=== PATIENT | female | born 1935 | race Hispanic/Latino ===

== ENCOUNTER 2016-12-08 17:45 | Inpatient (IN) | payer MEDICARE ==
[2016-12-08 19:40] LABS: BASO # 0.1 K/uL (0.0-0.2); BASO % 0.4 % (0.0-2.0); EOS % 0.2 % (0.0-4.0); HEMATOCRIT 43.7 % (34.0-47.0); LYMPH # 1.9 K/uL (1.0-4.3); LYMPH % 13.2 % (20.0-40.0); MEAN CELL VOLUME 89.2 fl (81.0-99.0); MEAN CORPUSCULAR HEMOGLOBIN 29.2 pg (27.0-31.0); MEAN CORPUSCULAR HGB CONC 32.7 g/dL (33.0-37.0); MEAN PLATELET VOLUME 7.7 fl (7.2-11.7); MONO # 1.2 K/uL (0.0-0.8); MONO % 8.6 % (0.0-10.0); NEUT # 11.2 K/uL (1.8-7.0); NEUT % 77.6 % (50.0-75.0); NRBC % 0.2 % (0.0-0.0); RED CELL DISTRIBUTION WIDTH 13.2 % (11.5-14.5); WHITE BLOOD COUNT 14.4 K/uL (4.8-10.8)
[2016-12-08 19:52] LABS: ALB/GLOB RATIO 0.9 (1.0-2.1); ALKALINE PHOSPHATASE 144 U/L (38-126); ALT/SGPT 35 U/L (9-52); AST/SGOT 72 U/L (14-36); BILIRUBIN,TOTAL 0.6 mg/dl (0.2-1.3); BLOOD UREA NITROGEN 27 mg/dl (7-17); CALCIUM 9.9 mg/dL (8.4-10.2); CARBON DIOXIDE 25 mmol/L (22-30); CHLORIDE 98 mmol/L (98-107); GFR AFRICAN-AMERICAN > 60; GLUCOSE,RANDOM 134 mg/dL (65-105); LIPASE 82 U/L (23-300); POTASSIUM 4.3 MMOL/L (3.6-5.0); SODIUM 139 mmol/l (132-148); TOTAL PROTEIN 8.6 G/DL (6.3-8.2)
[2016-12-08 19:54] LABS: PARTIAL THROMBOPLASTIN TIME 30.9 Seconds (25.6-37.1)
[2016-12-08 22:02] LABS: URINE BACTERIA MANY (<OCC); URINE BILIRUBIN NEGATIVE (NEGATIVE); URINE BLOOD SMALL (NEGATIVE); URINE COLOR AMBER (YELLOW); URINE GLUCOSE (UA) NEG (Normal); URINE KETONE TRACE mg/dL (NEGATIVE); URINE LEUKOCYTE ESTERASE LARGE Leu/uL (Negative); URINE PROTEIN 30 mg/dL (NEGATIVE); URINE UROBILINOGEN 0.2-1.0 mg/dL (0.2-1.0); WBC URINE 47 /hpf (0-5)
[2016-12-08 22:06] LABS: RBC URINE 12 /hpf (0-3)
--- NOTE | 2016-12-08 22:33 | CP.PCM.HP ---
History of Present Illness - History of Present Illness History of Present Illness: PCP: Dr Hurd Chief Complaint: Fall with LOC HPI: the hx is obtained from the patient's son and the medical chart. This is an 81 years old female who lives alone brought to the ED after being found on the floor awake but with poor response. She could have been on the floor for over 5 hrs. The patient cannot remember what happened but she was found with urine incontinence, pain to the back of the head and to the posterior of the right knee. She has hx of Dementia and arthritis. PMD: Dementia; Arthritis PSH: No Known surgical Hx as per family SH: No smoking; No illegal drug use; No alcohol; FH: No Known Family Hx Allergies: NKDA Present on Admission - Present on Admission Any Indicators Present on Admission: No History of DVT/PE: No History of Uncontrolled Diabetes: No Urinary Catheter: No Decubitus Ulcer Present: No Review of Systems - Review of Systems Review of Systems: review of systems is limited because of the Dementia and Slow mentation of the patient Past Patient History - Past Medical History & Family History Past Medical History?: No - Past Social History Smoking Status: Never Smoked Alcohol: None Drugs: Denies Home Situation {Lives}: Alone - CARDIAC Hx Cardiac Disorders: No - PULMONARY Hx Respiratory Disorders: No - NEUROLOGICAL Hx Neurological Disorder: Yes Hx Dementia: Yes - HEENT Hx HEENT Problems: No - HEMATOLOGICAL/ONCOLOGICAL Hx Blood Disorders: No - INTEGUMENTARY Hx Dermatological Problems: No - MUSCULOSKELETAL/RHEUMATOLOGICAL Hx Musculoskeletal Disorders: Yes Hx Arthritis: Yes - GASTROINTESTINAL Hx Gastrointestinal Disorders: No - GENITOURINARY/GYNECOLOGICAL Hx Genitourinary Disorders: No - PSYCHIATRIC Hx Substance Use: No Other/Comment: Dementia - SURGICAL HISTORY Hx Surgeries: No - ANESTHESIA Hx Anesthesia: No Meds Allergies/Adverse Reactions: Allergies Allergy/AdvReac Type Severity Reaction Status Date / Time No Known Allergies Allergy Verified 12/08/16 18:00 Physical Exam - Constitutional Appears: No Acute Distress - Head Exam Head Exam: NORMOCEPHALIC Additional comments: Pain to the Occipital on palpation, no erythema nor edema. - Eye Exam Eye Exam: EOMI, Normal appearance Pupil Exam: NORMAL ACCOMODATION, PERRL - ENT Exam ENT Exam: Mucous Membranes Moist, Normal Exam, Normal External Ear Exam, Normal Oropharynx - Neck Exam Neck exam: Positive for: Full Rom, Normal Inspection. Negative for: Lymphadenopathy, Tenderness - Respiratory Exam Respiratory Exam: Clear to Auscultation Bilateral. absent: Rales, Rhonchi, Wheezes - Cardiovascular Exam Cardiovascular Exam: REGULAR RHYTHM, RRR, +S1, +S2 - GI/Abdominal Exam GI & Abdominal Exam: Normal Bowel Sounds, Soft. absent: Organomegaly, Tenderness - Rectal Exam Rectal Exam: Deferred - Extremities Exam Extremities exam: Negative for: calf tenderness, pedal edema - Back Exam Back exam: NORMAL INSPECTION. absent: CVA tenderness (L), CVA tenderness (R) - Neurological Exam Neurological exam: Alert, CN II-XII Intact, Oriented x3, Reflexes Normal - Psychiatric Exam Psychiatric exam: Normal Affect, Normal Mood - Skin Skin Exam: Dry, Intact, Normal Color, Warm Results - Vital Signs Recent Vital Signs: Last Vital Signs Temp 98.6 F 12/08/16 18:01 Pulse 76 12/08/16 18:01 Resp 18 12/08/16 18:01 BP 118/75 12/08/16 18:01 Pulse Ox 96 12/08/16 18:01 - Labs Result Diagrams: 12/08/16 19:37 12/08/16 19:37 - Imaging and Cardiology CT Cervical Spine Status: Image reviewed by me, Report reviewed by me Additional comment: EXAM: CT Cervical Spine Without Intravenous Contrast FINDINGS: Vertebrae: Small focus of dystrophic calcification within the right thyroid lobe. Mild multilevel spondylolisthesis, likely degenerative. Advanced multiple spondylosis without high-grade canal stenosis. No acute fracture. Discs/spinal canal/neural foramina: See above. Soft tissues: Unremarkable. Lung apices: Mild pulmonary tissue edema suspected. Other findings: Advanced arthropathic changes at the frontotemporal joint with pannus formation, bursal calcification, and possible bursitis. IMPRESSION: No acute C-spine traumatic injury. CT scan - head Status: Image reviewed by me Additional comment: CT Head Without Intravenous Contrast FINDINGS: Brain: Diffuse cerebral volume loss and chronic microvascular white matter changes. Ventricles: Unremarkable. Bones/joints: Unremarkable. No acute fracture. Soft tissues: Mild right high parietal extra-axial subcutaneous soft tissue swelling and stranding coming keeping with mild scalp blunt traumatic injury at the vertex.. Sinuses: Unremarkable as visualized. Mastoid air cells: Unremarkable as visualized. IMPRESSION: No acute intracranial pathology or traumatic injury. Assessment & Plan - Assessment and Plan (Free Text) Assessment: #. Syncope and Collapse #. closed head surgery #. UTI/Dehydration #. Leukocytosis Plan: 81 years old female who lives alone brought to the ED after being found on the floor awake but with poor response. She could have been on the floor for over 5 hrs. The patient cannot remember what happened but she was found with urine incontinence, pain to the back of the head and to the posterior of the right knee. She has hx of Dementia and arthritis. #. Syncope and Collapse most likely secondary to Dehydration and hypovolemia, r /o CVA vs Cardiac dysrrhythmia - Observe in Telemetry with cardiac monitoring - Treat dehydration - neuro checks Q4H - repeat CT head without after 8 hrs #. Closed head injury - Pain management #. UTI - Rocephin - follow Urine culture #. Dehydration - IV Fluids - Follow renal labs #. Leukocytosis due to the UTI - follow WBC #. DVT prophylaxis with SCD and Lovenox #. Code Status: Full - Date & Time Date: 12/08/16 Time: 22:33
[2016-12-09] MEDS ORDERED: Sodium Chloride 0.9% 1,000 ML IV SCH (00:15)
[2016-12-09 07:41] LABS: BASO % 0.5 % (0.0-2.0); EOS # 0.2 K/uL (0.0-0.7); EOS % 2.3 % (0.0-4.0); HEMATOCRIT 38.8 % (34.0-47.0); LYMPH # 1.8 K/uL (1.0-4.3); LYMPH % 19.9 % (20.0-40.0); MEAN CELL VOLUME 87.3 fl (81.0-99.0); MEAN CORPUSCULAR HEMOGLOBIN 29.5 pg (27.0-31.0); MEAN CORPUSCULAR HGB CONC 33.8 g/dL (33.0-37.0); MEAN PLATELET VOLUME 7.5 fl (7.2-11.7); MONO # 0.8 K/uL (0.0-0.8); MONO % 8.5 % (0.0-10.0); NEUT # 6.1 K/uL (1.8-7.0); NEUT % 68.8 % (50.0-75.0); NRBC % 0.1 % (0.0-0.0); WHITE BLOOD COUNT 8.9 K/uL (4.8-10.8)
[2016-12-09 08:04] LABS: BLOOD UREA NITROGEN 22 mg/dl (7-17); CALCIUM 9.1 mg/dL (8.4-10.2); CARBON DIOXIDE 25 mmol/L (22-30); CHLORIDE 101 mmol/L (98-107); CHOLESTEROL 156 mg/dL (0-199); GFR AFRICAN-AMERICAN > 60; GLUCOSE,RANDOM 116 mg/dL (65-105); POTASSIUM 3.9 MMOL/L (3.6-5.0); SODIUM 138 mmol/l (132-148)
--- NOTE | 2016-12-09 08:26 | CT ---
PROCEDURE: CT HEAD WITHOUT CONTRAST. HISTORY: trauma COMPARISON: None available. TECHNIQUE: Axial computed tomography images were obtained through the head/brain without intravenous contrast. Radiation dose: Total exam DLP = 736.99 mGy-cm. This CT exam was performed using one or more of the following dose reduction techniques: Automated exposure control, adjustment of the mA and/or kV according to patient size, and/or use of iterative reconstruction technique. FINDINGS: HEMORRHAGE: No intracranial hemorrhage. BRAIN: Diffuse atrophy with prominence of the ventricles and sulci noted. No mass effect or edema. Intracranial atherosclerotic calcifications. Mild scattered white matter hypodensities, which are nonspecific, but often seen with chronic microvascular ischemic disease. Please note that MRI with diffusion imaging is more sensitive in the detection of acute ischemic event. VENTRICLES: No hydrocephalus. CALVARIUM: Unremarkable. PARANASAL SINUSES: Unremarkable as visualized. No significant inflammatory changes. MASTOID AIR CELLS: Unremarkable as visualized. No inflammatory changes. OTHER FINDINGS: Soft tissue swelling, high right parietal scalp. IMPRESSION: Soft tissue swelling, high right parietal scalp. Generalized atrophy. Nonspecific white matter changes. No acute intracranial pathology identified. Preliminary impression was provided by virtual radiologic.
--- NOTE | 2016-12-09 09:00 | CT ---
CT cervical spine without IV contrast Indication: Trauma Comparison: None available. Technique: Axial computed tomography images were obtained of the cervical spine without the use of intravenous contrast. Coronal and sagittal reformatted images were created and reviewed. This CT exam was performed using 1 or more of the falling dose reduction techniques: Automated exposure control, adjustment of the MAA and/or kV according to patient size, and/or use of iterative reconstruction technique. Radiation dose: Total exam DLP = 410.26 mGy-cm. Findings: Osseous demineralization. Multilevel degenerative changes including intervertebral disc space narrowing and osteophyte formation. Multilevel spondylolisthesis, likely degenerative. Mild scoliosis. No acute displaced fracture identified. The prevertebral soft tissues and spinolaminar lines appear intact. The dens tip is intact. There is proper alignment of the lateral masses of C1 with the C2 vertebral body. Included portions of the thyroid gland demonstrates dystrophic calcification within the right thyroid lobe with possible nodule. Included portions of lung apices demonstrates 5 mm nodule in the posterior right upper lobe. Right greater than left carotid artery calcifications. Impression: No evidence of acute fracture or subluxation. Osseous demineralization. Extensive degenerative changes. Dystrophic calcification within the right inferior thyroid lobe with possible nodule. Thyroid ultrasound may be considered for further evaluation if indicated. 5 mm subpleural nodule, posterior right upper lobe. Guidelines by the Fleischner society suggests that in patients with low risk for lung cancer, nodules from 5 mm to 6 mm in diameter should have follow-up in approximately 12 months. In patients with high-risk, such as those were smokers, follow-up is recommended in 6 months. Patients with a known malignancy or risk for metastases should receive 3 month follow-up. Preliminary impression was provided by virtual radiologic.
[2016-12-09] MEDS: Enoxaparin 40 mg Syringe SC SCH (09:13)
--- NOTE | 2016-12-09 10:48 | RAD ---
PROCEDURE: Right Knee Radiographs. HISTORY: Unspecified trauma COMPARISON: None. FINDINGS: BONES: No acute fracture. JOINTS: Degenerative changes medial lateral compartment and to lesser extent patellofemoral joint. Evidence of chondrocalcinosis. JOINT EFFUSION: None. OTHER FINDINGS: None. IMPRESSION: No acute findings related to/accounting for the clinical presentation.
--- NOTE | 2016-12-09 15:16 | CP.PCM.PN ---
Subjective - Date & Time of Evaluation Date of Evaluation: 12/09/16 Time of Evaluation: 11:00 - Subjective Subjective: Patient seen and examined bedside. Complains of pain to right lower extremity with decreased ROM due to pain , stiff Denies any SOB, or palpitations. Unable to give any details related to the events before her son found her on the floor. Appears to have memory problems Objective - Vital Signs/Intake and Output Vital Signs (last 24 hours): Temp Pulse Resp BP Pulse Ox 98.6 F 76 20 110/50 L 98 12/09/16 12:00 12/09/16 12:00 12/09/16 12:00 12/09/16 12:00 12/09/16 12:00 - Medications Medications: Current Medications Acetaminophen (Tylenol 325mg Tab) 650 mg PO Q4 PRN PRN Reason: Other Aspirin (Ecotrin) 81 mg PO DAILY [facility] Last Admin: 12/09/16 09:12 Dose: 81 mg Enoxaparin Sodium (Lovenox) 40 mg SC DAILY CHRISTIE PRN Reason: Protocol Last Admin: 12/09/16 09:13 Dose: 40 mg Ceftriaxone Sodium 1 gm/ (Sodium Chloride) 100 mls @ 100 mls/hr IVPB DAILY CHRISTIE PRN Reason: Protocol - Labs Labs: 12/09/16 07:15 12/09/16 05:30 PT 14.6 Seconds (9.8-13.1) H 12/08/16 19:37 INR 1.3 (0.9-1.2) H 12/08/16 19:37 APTT 30.9 Seconds (25.6-37.1) 12/08/16 19:37 - Constitutional Appears: Non-toxic, No Acute Distress, Other (eledrly, frail , pleasant) - Head Exam Head Exam: ATRAUMATIC, NORMAL INSPECTION, NORMOCEPHALIC Additional comments: right parietal tenderness - Eye Exam Eye Exam: EOMI, Normal appearance, PERRL Pupil Exam: NORMAL ACCOMODATION - ENT Exam ENT Exam: Mucous Membranes Moist, Normal Exam - Neck Exam Neck Exam: Full ROM, Normal Inspection - Respiratory Exam Respiratory Exam: Clear to Ausculation Bilateral, NORMAL BREATHING PATTERN. absent: Rales, Rhonchi, Wheezes - Cardiovascular Exam Cardiovascular Exam: REGULAR RHYTHM, RRR, +S1, +S2. absent: JVD - GI/Abdominal Exam GI & Abdominal Exam: Soft, Normal Bowel Sounds. absent: Distended, Guarding, Tenderness, Rebound - Rectal Exam Rectal Exam: Deferred - Extremities Exam Extremities Exam: Full ROM, Normal Capillary Refill, Normal Inspection. absent : Pedal Edema - Back Exam Back Exam: NORMAL INSPECTION - Neurological Exam Neurological Exam: Alert, Awake, CN II-XII Intact Additional comments: memory problems unable to provide history - Psychiatric Exam Psychiatric exam: Flat Affect - Skin Skin Exam: Dry, Warm Assessment and Plan - Assessment and Plan (Free Text) Assessment: 81 years old female who lives alone brought to the ED after being found on the floor, naked , awake but with poor response. She could have been on the floor for over 5 hrs. The patient cannot remember what happened , unbale to give any details ,but she was found with urine incontinence, pain to the back of the head and to the posterior of the right knee. She has hx of Dementia and arthritis. Patient admitted to telemetry for Syncopy with fall and UTI . 1. Syncope and Collapse of unclear etiology most likely secondary to Dehydration and hypovolemia CT head showed no acute pathology except generalized atrophy patient unable to provide any details or history Continue telemetry monitoring, neurochecks follow up carotid doppler , Echo , MRI head continue IVF PT eval appreciated . patient has unstable gait and will benefit from PT Patient lives by her self and will need home health services. SW eval and referral to [facility] 2. Closed head injury possibly secondary to fall Ct haed showed no acute pathology f/u MRI head Pain management 3. UTI urine is cloudy with bacteria, WBC and LE Continue Rocephin IV follow Urine culture 4. Dehydration on IV Fluids 5. Leukocytosis due to the UTI follow WBC 6. Gait instability PT eval appreciated will benefit from PT 7. DVT prophylaxis SCD and Lovenox
--- NOTE | 2016-12-09 23:11 | CARD ---
APPROVED REPORT EKG Measurement Heart [id number] ID [id number] <Conclusion> Normal sinus rhythm Possible Left atrial enlargement Borderline ECG
[2016-12-10 07:26] LABS: HEMATOCRIT 38.1 % (34.0-47.0); MEAN CORPUSCULAR HEMOGLOBIN 29.6 pg (27.0-31.0); MEAN CORPUSCULAR HGB CONC 33.2 g/dL (33.0-37.0); RED CELL DISTRIBUTION WIDTH 12.6 % (11.5-14.5); WHITE BLOOD COUNT 7.6 K/uL (4.8-10.8)
[2016-12-10 07:41] LABS: BLOOD UREA NITROGEN 15 mg/dl (7-17); CARBON DIOXIDE 28 mmol/L (22-30); CHLORIDE 99 mmol/L (98-107); GFR AFRICAN-AMERICAN > 60; GLUCOSE,RANDOM 101 mg/dL (65-105); POTASSIUM 3.9 MMOL/L (3.6-5.0); SODIUM 139 mmol/l (132-148)
[2016-12-10] MEDS: Enoxaparin 40 mg Syringe SC SCH (08:50)
--- NOTE | 2016-12-10 11:13 | CP.PCM.PN ---
Subjective - Date & Time of Evaluation Date of Evaluation: 12/10/16 Time of Evaluation: 10:30 - Subjective Subjective: Patient seen and examined bedside. Elderly female,lying in bed in NAD.States that does not feel perfect and still has pain to her right leg.Hemodynamically stable, afebrile Undergoing work up for syncopy and IV antibiotics for UTI Urine Cx positive for gram negative pastora Objective - Vital Signs/Intake and Output Vital Signs (last 24 hours): Temp Pulse Resp BP Pulse Ox 97.6 F 78 18 135/70 97 12/10/16 08:00 12/10/16 09:00 12/10/16 08:00 12/10/16 08:00 12/10/16 08:00 - Medications Medications: Current Medications Acetaminophen (Tylenol 325mg Tab) 650 mg PO Q4 PRN PRN Reason: Other Aspirin (Ecotrin) 81 mg PO DAILY [facility] Last Admin: 12/10/16 08:50 Dose: 81 mg Enoxaparin Sodium (Lovenox) 40 mg SC DAILY CHRISTIE PRN Reason: Protocol Last Admin: 12/10/16 08:50 Dose: 40 mg Ceftriaxone Sodium 1 gm/ (Sodium Chloride) 100 mls @ 100 mls/hr IVPB DAILY CHRISTIE PRN Reason: Protocol Last Admin: 12/10/16 00:43 Dose: 100 mls/hr - Labs Labs: 12/10/16 06:00 12/10/16 06:00 PT 14.6 Seconds (9.8-13.1) H 12/08/16 19:37 INR 1.3 (0.9-1.2) H 12/08/16 19:37 APTT 30.9 Seconds (25.6-37.1) 12/08/16 19:37 - Constitutional Appears: Non-toxic, No Acute Distress, Other (elderly ) - Head Exam Head Exam: ATRAUMATIC, NORMOCEPHALIC - Eye Exam Eye Exam: EOMI, Normal appearance, PERRL Pupil Exam: NORMAL ACCOMODATION - ENT Exam ENT Exam: Mucous Membranes Moist, Normal Exam - Neck Exam Neck Exam: Full ROM, Normal Inspection - Respiratory Exam Respiratory Exam: Clear to Ausculation Bilateral, NORMAL BREATHING PATTERN. absent: Rales, Rhonchi, Wheezes - Cardiovascular Exam Cardiovascular Exam: REGULAR RHYTHM, RRR, +S1, +S2. absent: JVD - GI/Abdominal Exam GI & Abdominal Exam: Soft, Normal Bowel Sounds. absent: Guarding, Tenderness, Rebound - Rectal Exam Rectal Exam: Deferred - Extremities Exam Extremities Exam: Normal Capillary Refill. absent: Calf Tenderness, Pedal Edema Additional comments: tenderness to right leg, decreased ROM ( lifting of the bed ) due to pain - Back Exam Back Exam: NORMAL INSPECTION - Neurological Exam Neurological Exam: Alert, Awake, CN II-XII Intact Additional comments: oriented to self, knows son and that she is in hospital - Psychiatric Exam Psychiatric exam: Normal Affect - Skin Skin Exam: Dry, Normal Color, Warm Assessment and Plan - Assessment and Plan (Free Text) Assessment: 81 years old female who lives alone brought to the ED after being found on the floor, naked , awake but with poor response. She could have been on the floor for over 5 hrs. The patient cannot remember what happened , unable to give any details ,but she was found with urine incontinence, pain to the back of the head and to the posterior of the right knee. She has hx of Dementia and arthritis. Patient admitted to telemetry for Syncopy with fall and UTI .Imaging showed no acute fracture. At present still with some pain to right leg and physical therapy recommended PT due to gait imbalance. 1. Syncope and Collapse of unclear etiology most likely secondary to Dehydration and hypovolemia CT head showed no acute pathology except generalized atrophy telemetry monitoring showed no arrythmias so far carotid doppler showed no significant stenosis patient unable to provide any details or history follow up Echo , MRI head continue IVF PT eval appreciated . patient has unstable gait and will benefit from PT Patient lives by her self and will need home health services. SW eval and referral to [facility] 2. Closed head injury possibly secondary to fall Ct head showed no acute pathology f/u MRI head Pain management 3. UTI urine is cloudy with bacteria, WBC and LE and urine culture is positive for gram negative rods Continue Rocephin IV follow up[ identification and sensitivities 4. Dehydration on IV Fluids 5. Leukocytosis due to the UTI trended down fro 14 K -- 7k 6. Gait instability PT eval appreciated will benefit from PT 7. DVT prophylaxis SCD and Lovenox
--- NOTE | 2016-12-10 12:58 | US ---
PROCEDURE: Duplex ultrasound of the carotid and vertebral arteries. HISTORY: syncopy COMPARISON: None available. TECHNIQUE: Grayscale and duplex Doppler evaluation of the cervical carotid and vertebral arteries were performed. The common carotid, carotid bifurcations and cervical ICA and proximal ECA were evaluated. The vertebral arteries were evaluated for gross patency and direction. FINDINGS: RIGHT CAROTID ARTERIES: Common Carotid Artery: Normal. Maximal flow velocity of 84.3 cm/s. Carotid Bifurcation: Partially calcified plaque Internal Carotid Artery:Heterogeneous plaque formation. Maximal flow velocity of 97.3 cm/s. External Carotid Artery (proximal branches): Calcified plaque from the carotid bulb extends into the right ECA. Maximal flow velocity of 96.0 cm/s. ICA/CCA Ratio: 1.2 LEFT CAROTID ARTERIES: Common Carotid Artery: Normal. Maximal flow velocity of 92.2 cm/s. Carotid Bifurcation: Heterogeneous plaque formation. Internal Carotid Artery:Heterogeneous plaque formation. This is particularly evident in the proximal left ICA Maximal flow velocity of 71.2 cm/s. tortuous ICA External Carotid Artery (proximal branches): Heterogeneous plaque formation. Maximal flow velocity of 67.5 cm/s. ICA/CCA Ratio: 0.8 VERTEBRAL ARTERIES: Right Vertebral Artery: Patent. Antegrade flow. Left Vertebral Artery: Patent. Antegrade flow. OTHER FINDINGS: None. IMPRESSION: Right ICA degree of stenosis: Less than 50% Left ICA degree of stenosis: Less than 50% Reference Internal Carotid Artery (ICA) Peak Systolic Velocity (PSV) for above: 1. Less than 50% stenosis less than 125 cm/s peak systolic velocity 2. 50-69% stenosis 125-230cm/s peak systolic velocity 3. Greater than 70% but less than near occlusion greater than 230 cm/s peak systolic velocity
--- NOTE | 2016-12-10 17:05 | CT ---
PROCEDURE: CT HEAD WITHOUT CONTRAST. HISTORY: Syncope COMPARISON: Noncontrast head CT performed 12/08/16 TECHNIQUE: Axial computed tomography images were obtained through the head/brain without intravenous contrast. Radiation dose: Total exam DLP = 820.74 mGy-cm. This CT exam was performed using one or more of the following dose reduction techniques: Automated exposure control, adjustment of the mA and/or kV according to patient size, and/or use of iterative reconstruction technique. FINDINGS: HEMORRHAGE: No intracranial hemorrhage. BRAIN: Diffuse atrophy with prominence of the ventricles and sulci noted. No mass effect or edema. Intracranial atherosclerosis. Scattered white matter hypodensities, which are nonspecific, but often seen with chronic microvascular ischemic disease. Please note that MRI with diffusion imaging is more sensitive in the detection of acute ischemic event. VENTRICLES: No hydrocephalus. CALVARIUM: Unremarkable. PARANASAL SINUSES: Unremarkable as visualized. No significant inflammatory changes. MASTOID AIR CELLS: Unremarkable as visualized. No inflammatory changes. OTHER FINDINGS: None. IMPRESSION: Generalized atrophy. Nonspecific white matter changes.
[2016-12-10 21:44] LABS: THYROID STIMULATING HORMONE 2.99 mIU/ML (0.46-4.68)
[2016-12-11 05:36] LABS: HEMATOCRIT 36.7 % (34.0-47.0); MEAN CELL VOLUME 87.9 fl (81.0-99.0); MEAN CORPUSCULAR HEMOGLOBIN 29.6 pg (27.0-31.0); MEAN CORPUSCULAR HGB CONC 33.7 g/dL (33.0-37.0); RED CELL DISTRIBUTION WIDTH 12.8 % (11.5-14.5)
[2016-12-11 05:38] LABS: BLOOD UREA NITROGEN 9 mg/dl (7-17); CARBON DIOXIDE 28 mmol/L (22-30); CHLORIDE 101 mmol/L (98-107); GFR AFRICAN-AMERICAN > 60; GLUCOSE,RANDOM 122 mg/dL (65-105); SODIUM 139 mmol/l (132-148)
--- NOTE | 2016-12-11 07:36 | CP.PCM.PN ---
Subjective - Date & Time of Evaluation Date of Evaluation: 12/11/16 Time of Evaluation: 11:00 - Subjective Subjective: Patient seen and evaluated bedside.Pleasant, elderly female with memory problems , lying in bed in NAD. Hemodynamically stable, afebrile. No acute issues overnight. Objective - Vital Signs/Intake and Output Vital Signs (last 24 hours): Temp Pulse Resp BP Pulse Ox 97.5 F L 67 20 122/78 98 12/11/16 04:52 12/11/16 04:52 12/11/16 04:52 12/11/16 04:52 12/11/16 04:52 - Medications Medications: Current Medications Acetaminophen (Tylenol 325mg Tab) 650 mg PO Q4 PRN PRN Reason: Other Aspirin (Ecotrin) 81 mg PO DAILY [facility] Last Admin: 12/10/16 08:50 Dose: 81 mg Enoxaparin Sodium (Lovenox) 40 mg SC DAILY [facility] PRN Reason: Protocol Last Admin: 12/10/16 08:50 Dose: 40 mg Ceftriaxone Sodium 1 gm/ (Sodium Chloride) 100 mls @ 100 mls/hr IVPB DAILY [facility]STIE PRN Reason: Protocol Last Admin: 12/10/16 00:43 Dose: 100 mls/hr - Labs Labs: 12/11/16 04:30 12/11/16 04:30 PT 14.6 Seconds (9.8-13.1) H 12/08/16 19:37 INR 1.3 (0.9-1.2) H 12/08/16 19:37 APTT 30.9 Seconds (25.6-37.1) 12/08/16 19:37 - Constitutional Appears: Non-toxic, No Acute Distress, Other (elderly , plesantly demented ) - Head Exam Head Exam: ATRAUMATIC, NORMAL INSPECTION, NORMOCEPHALIC - Eye Exam Eye Exam: EOMI, Normal appearance, PERRL Pupil Exam: NORMAL ACCOMODATION - ENT Exam ENT Exam: Mucous Membranes Moist, Normal Exam - Neck Exam Neck Exam: Full ROM, Normal Inspection - Respiratory Exam Respiratory Exam: Clear to Ausculation Bilateral. absent: Rales, Rhonchi, Wheezes - Cardiovascular Exam Cardiovascular Exam: REGULAR RHYTHM, RRR, +S1, +S2. absent: JVD - GI/Abdominal Exam GI & Abdominal Exam: Soft, Normal Bowel Sounds. absent: Distended, Guarding, Tenderness, Rebound - Rectal Exam Rectal Exam: Deferred - Extremities Exam Extremities Exam: Full ROM, Normal Capillary Refill, Normal Inspection. absent : Calf Tenderness, Pedal Edema - Back Exam Back Exam: NORMAL INSPECTION - Neurological Exam Neurological Exam: Alert, Awake, CN II-XII Intact, Oriented x3 - Psychiatric Exam Psychiatric exam: Normal Affect, Normal Mood - Skin Skin Exam: Dry, Warm Assessment and Plan - Assessment and Plan (Free Text) Assessment: 81 years old female who lives alone brought to the ED after being found on the floor, naked , awake but with poor response. She could have been on the floor for over 5 hrs. The patient cannot remember what happened , unable to give any details ,but she was found with urine incontinence, pain to the back of the head and to the posterior of the right knee. She has hx of Dementia and arthritis. Patient admitted to telemetry for Syncopy with fall and UTI .Imaging showed no acute fracture. At present still with some pain to right leg and physical therapy recommended PT due to gait imbalance. 1. Syncope and Collapse of unclear etiology most likely secondary to Dehydration and hypovolemia CT head showed no acute pathology except generalized atrophy telemetry monitoring showed no arrythmias so far carotid doppler showed no significant stenosis patient unable to provide any details or history follow up Echo MRI head showed no CVA , age related changes PT eval appreciated . Patient has unstable gait and will benefit from PT Patient lives by herself and will need home health services. SW eval and referral to [facility] will d/c to TCU in Am for physical therapy 2. Closed head injury possibly secondary to fall Ct head showed no acute pathology MRI showed no acute pathology Pain management 3. UTI urine is cloudy with bacteria, WBC and LE and urine culture is positive for E. Coli Pansensitive Continue Rocephin IV follow up identification and sensitivities 4. Dehydration IV Fluids 5. Leukocytosis due to the UTI trended down fro 14 K -- 7k 6. Gait instability PT eval appreciated will benefit from PT will d/c to TCU in AM 7. DVT prophylaxis SCD and Lovenox
[2016-12-11] MEDS: Enoxaparin 40 mg Syringe SC SCH (08:53)
--- NOTE | 2016-12-11 13:19 | MRI ---
PROCEDURE: MRI BRAIN WITHOUT CONTRAST HISTORY: syncopy COMPARISON: Head CT without contrast 12/08/2016. TECHNIQUE: Multiplanar, multisequence MR images of the brain were obtained without intravenous contrast enhancement. FINDINGS: HEMORRHAGE: None DWI: No evidence of an acute or early subacute infarction. 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 No mass is identified or suspicious extra-axial fluid collection in the midline brain and appears diffusely unremarkable nevertheless. Posterior fossa contents remain unremarkable the brainstem. VENTRICLES: Unremarkable. No hydrocephalus. CRANIUM: Unremarkable. ORBITS: Grossly unremarkable. PARANASAL SINUSES/MASTOIDS: Clear VASCULAR SYSTEM: Skull base flow voids intact. OTHER FINDINGS: None. IMPRESSION: Age related neuro degenerative changes are reiterated without acute intracranial findings by standard MRI criteria. Continued follow up CT or possibly MRI advised as clinically warranted.
[2016-12-12 06:24] VITALS: RESP 20
[2016-12-12 08:34] VITALS: BP 124/74; PULSE 68; TEMP 98.4; O2SAT 97
--- NOTE | 2016-12-12 08:41 | CP.PCM.DIS ---
<Kenya Salazar - Last Filed: 12/12/16 13:12> Provider - Provider Date of Admission: 12/09/16 15:10 Attending physician: Homer Duran Time Spent in preparation of Discharge (in minutes): 10 Hospital Course - Lab Results Lab Results: Micro Results 12/08/16 21:44 Urine Urine Culture - Final Escherichia Coli Most Recent Lab Values WBC 7.0 K/uL (4.8-10.8) 12/11/16 04:30 RBC 4.17 Mil/uL (3.80-5.20) 12/11/16 04:30 Hgb 12.4 g/dL (12.0-16.0) 12/11/16 04:30 Hct 36.7 % (34.0-47.0) 12/11/16 04:30 MCV 87.9 fl (81.0-99.0) 12/11/16 04:30 MCH 29.6 pg (27.0-31.0) 12/11/16 04:30 MCHC 33.7 g/dL (33.0-37.0) 12/11/16 04:30 RDW 12.8 % (11.5-14.5) 12/11/16 04:30 Plt Count 337 K/uL (130-400) 12/11/16 04:30 MPV 7.5 fl (7.2-11.7) 12/09/16 07:15 Neut % (Auto) 68.8 % (50.0-75.0) 12/09/16 07:15 Lymph % (Auto) 19.9 % (20.0-40.0) L 12/09/16 07:15 [place] % (Auto) 8.5 % (0.0-10.0) 12/09/16 07:15 Eos % (Auto) 2.3 % (0.0-4.0) 12/09/16 07:15 Baso % (Auto) 0.5 % (0.0-2.0) 12/09/16 07:15 Neut # 6.1 K/uL (1.8-7.0) 12/09/16 07:15 Lymph # 1.8 K/uL (1.0-4.3) 12/09/16 07:15 [place] # 0.8 K/uL (0.0-0.8) 12/09/16 07:15 Eos # 0.2 K/uL (0.0-0.7) 12/09/16 07:15 Baso # 0.0 K/uL (0.0-0.2) 12/09/16 07:15 PT 14.6 Seconds (9.8-13.1) H 12/08/16 19:37 INR 1.3 (0.9-1.2) H 12/08/16 19:37 APTT 30.9 Seconds (25.6-37.1) 12/08/16 19:37 Sodium 139 mmol/l (132-148) 12/11/16 04:30 Potassium 4.0 MMOL/L (3.6-5.0) 12/11/16 04:30 Chloride 101 mmol/L (98-107) 12/11/16 04:30 Carbon Dioxide 28 mmol/L (22-30) 12/11/16 04:30 Anion Gap 15 (10-20) 12/11/16 04:30 BUN 9 mg/dl (7-17) 12/11/16 04:30 Creatinine 0.6 mg/dL (0.7-1.2) L 12/11/16 04:30 Est GFR ( Amer) > 60 12/11/16 04:30 Est GFR (Non-Af Amer) > 60 12/11/16 04:30 POC Glucose (mg/dL) 144 mg/dL (65-110) H 12/08/16 18:21 Random Glucose 122 mg/dL (65-105) H 12/11/16 04:30 Calcium 9.0 mg/dL (8.4-10.2) 12/11/16 04:30 Total Bilirubin 0.6 mg/dl (0.2-1.3) 12/08/16 19:37 AST 72 U/L (14-36) H 12/08/16 19:37 ALT 35 U/L (9-52) 12/08/16 19:37 Alkaline Phosphatase 144 U/L (38-126) H 12/08/16 19:37 Total Creatine Kinase 105 U/L (30-135) 12/08/16 19:37 Troponin I < 0.0120 ng/mL (0.00-0.120) 12/08/16 19:37 Total Protein 8.6 G/DL (6.3-8.2) H 12/08/16 19:37 Albumin 4.0 g/dL (3.5-5.0) 12/08/16 19:37 Globulin 4.5 gm/dL (2.2-3.9) H 12/08/16 19:37 Albumin/Globulin Ratio 0.9 (1.0-2.1) L 12/08/16 19:37 Triglycerides 103 mg/DL (0-149) 12/09/16 05:30 Cholesterol 156 mg/dL (0-199) 12/09/16 05:30 LDL Cholesterol Direct 111 mg/dL (0-129) 12/09/16 05:30 HDL Cholesterol 28 MG/DL (30-70) L 12/09/16 05:30 Lipase 82 U/L (23-300) 12/08/16 19:37 TSH 3rd Generation 2.99 mIU/ML (0.46-4.68) 12/10/16 06:00 Urine Color Mariel (YELLOW) 12/08/16 21:44 Urine Clarity Cloudy (Clear) 12/08/16 21:44 Urine pH 6.0 (5.0-8.0) 12/08/16 21:44 Ur Specific [place] 1.025 (1.003-1.030) 12/08/16 21:44 Urine Protein 30 mg/dL (NEGATIVE) 12/08/16 21:44 Urine Glucose (UA) Neg mg/dL (Normal) 12/08/16 21:44 Urine Ketones Trace mg/dL (NEGATIVE) 12/08/16 21:44 Urine Blood Small (NEGATIVE) 12/08/16 21:44 Urine Nitrate Positive (NEGATIVE) H 12/08/16 21:44 Urine Bilirubin Negative (NEGATIVE) 12/08/16 21:44 Urine Urobilinogen 0.2-1.0 mg/dL (0.2-1.0) 12/08/16 21:44 Ur Leukocyte Esterase Large Nicky/uL (Negative) 12/08/16 21:44 Urine RBC (Auto) 12 /hpf (0-3) H 12/08/16 21:44 Urine Microscopic WBC 47 /hpf (0-5) H 12/08/16 21:44 Ur Squamous Epith Cells 2 /hpf (0-5) 12/08/16 21:44 Urine Bacteria Many (<OCC) H 12/08/16 21:44 Urine Opiates Screen Negative (NEGATIVE) 12/08/16 21:44 Urine Methadone Screen Negative (NEGATIVE) 12/08/16 21:44 Ur Barbiturates Screen Negative (NEGATIVE) 12/08/16 21:44 Ur Phencyclidine Scrn Negative (NEGATIVE) 12/08/16 21:44 Ur Amphetamines Screen Negative (NEGATIVE) 12/08/16 21:44 U Benzodiazepines Scrn Negative (NEGATIVE) 12/08/16 21:44 U Oth Cocaine Metabols Negative (NEGATIVE) 12/08/16 21:44 U Cannabinoids Screen Negative (NEGATIVE) 12/08/16 21:44 - Hospital Course Hospital Course: 81 y/o elderly female with PMHx of dementia and arthritis presented to hospital after a syncopal episode with collapse. Pt was found on the floor at home with urine incontinence and pain to the head and posterior knee. Pt's son related history and stated it was unknown how long she had been lying there. Pt was in a state of dehydration upon hospital arrival and found to have a UTI. Pt was admitted for observation to telemetry with cardiac monitoring. A CT of the head showed no evidence of intracranial pathology or acute traumatic injury. A CT of the cervical spine was also performed and showed no evidence of acute traumatic injury. An X-ray of the right knee showed no acute findings. Pt was given IV fluids and neuro checks were performed every 4 hours. Pt was placed on DVT prophylaxis with SCDs and Lovenox. A urine culture was performed and came out positive for E. Coli, and patient was placed on Rocephin IV. An MRI of the head was performed and showed no evidence of CVA or acute pathology. Carotid doppler also showed no significant stenosis. Patient was evaluated by physical therapy for gait instability and seen by social contact worker for possible referral to home health services. Since admission, patient's leukocytosis has trended down from 14k to 7k. Patient will go to TCU where she will continue IV antibiotic therapy and physical therapy. Discharge Exam - Head Exam Head Exam: ATRAUMATIC, NORMAL INSPECTION, NORMOCEPHALIC - Eye Exam Eye Exam: Normal appearance, PERRL Pupil Exam: PERRL - ENT Exam ENT Exam: Mucous Membranes Moist - Neck Exam Neck exam: Full Rom Additional comments: supple, non tender, no JVD - Respiratory Exam Respiratory Exam: NORMAL BREATHING PATTERN, UNREMARKABLE Additional comments: no wheezing, no rales - Cardiovascular Exam Cardiovascular Exam: REGULAR RHYTHM, +S1, +S2 Additional comments: no JVD, no murmur, no gallop - GI/Abdominal Exam GI & Abdominal Exam: Normal Bowel Sounds, Soft Additional comments: absent for tenderness - Rectal Exam Rectal Exam: Deferred - Extremities Exam Extremities exam: full ROM, normal capillary refill, normal inspection, pedal pulses present Additional comments: right knee is mildly tender to palpation posteriorly. pulses present. neurologic protective sensation intact. pt able to flex and extend knee without difficulty. pt able to ambulate with minimal assistance but gait is unstable overall. No tenderness on palpation to B/L hips. Pt able to bend forward at trunk without difficulty. - Neurological Exam Neurological exam: Alert, Oriented x3 - Psychiatric Exam Psychiatric exam: Normal Affect, Normal Mood - Skin Skin Exam: Intact, Normal Color Discharge Plan - Discharge Medications Prescriptions: cefTRIAXone 1 gm [Rocephin 1 gram IVPB] 1 gm IVPB DAILY 7 Days bag - Follow Up Plan Condition: GOOD Disposition: TRANSF TO SNF Instructions: Syncope (DC) Additional Instructions: d/c pt to TCU <Eufemia Samuel - Last Filed: 12/12/16 15:25> Provider - Provider Date of Admission: 12/09/16 15:10 Attending physician: Homer Duran Time Spent in preparation of Discharge (in minutes): 20 Diagnosis - Discharge Diagnosis (1) Syncope Status: Acute Comment: sec to dehydration (2) UTI (urinary tract infection) Status: Acute (3) Dehydration Status: Acute (4) Gait instability Status: Chronic Hospital Course - Lab Results Lab Results: Micro Results 12/08/16 21:44 Urine Urine Culture - Final Escherichia Coli Most Recent Lab Values WBC 7.0 K/uL (4.8-10.8) 12/11/16 04:30 RBC 4.17 Mil/uL (3.80-5.20) 12/11/16 04:30 Hgb 12.4 g/dL (12.0-16.0) 12/11/16 04:30 Hct 36.7 % (34.0-47.0) 12/11/16 04:30 MCV 87.9 fl (81.0-99.0) 12/11/16 04:30 MCH 29.6 pg (27.0-31.0) 12/11/16 04:30 MCHC 33.7 g/dL (33.0-37.0) 12/11/16 04:30 RDW 12.8 % (11.5-14.5) 12/11/16 04:30 Plt Count 337 K/uL (130-400) 12/11/16 04:30 MPV 7.5 fl (7.2-11.7) 12/09/16 07:15 Neut % (Auto) 68.8 % (50.0-75.0) 12/09/16 07:15 Lymph % (Auto) 19.9 % (20.0-40.0) L 12/09/16 07:15 [place] % (Auto) 8.5 % (0.0-10.0) 12/09/16 07:15 Eos % (Auto) 2.3 % (0.0-4.0) 12/09/16 07:15 Baso % (Auto) 0.5 % (0.0-2.0) 12/09/16 07:15 Neut # 6.1 K/uL (1.8-7.0) 12/09/16 07:15 Lymph # 1.8 K/uL (1.0-4.3) 12/09/16 07:15 [place] # 0.8 K/uL (0.0-0.8) 12/09/16 07:15 Eos # 0.2 K/uL (0.0-0.7) 12/09/16 07:15 Baso # 0.0 K/uL (0.0-0.2) 12/09/16 07:15 PT 14.6 Seconds (9.8-13.1) H 12/08/16 19:37 INR 1.3 (0.9-1.2) H 12/08/16 19:37 APTT 30.9 Seconds (25.6-37.1) 12/08/16 19:37 Sodium 139 mmol/l (132-148) 12/11/16 04:30 Potassium 4.0 MMOL/L (3.6-5.0) 12/11/16 04:30 Chloride 101 mmol/L (98-107) 12/11/16 04:30 Carbon Dioxide 28 mmol/L (22-30) 12/11/16 04:30 Anion Gap 15 (10-20) 12/11/16 04:30 BUN 9 mg/dl (7-17) 12/11/16 04:30 Creatinine 0.6 mg/dL (0.7-1.2) L 12/11/16 04:30 Est GFR ( Amer) > 60 12/11/16 04:30 Est GFR (Non-Af Amer) > 60 12/11/16 04:30 POC Glucose (mg/dL) 144 mg/dL (65-110) H 12/08/16 18:21 Random Glucose 122 mg/dL (65-105) H 12/11/16 04:30 Calcium 9.0 mg/dL (8.4-10.2) 12/11/16 04:30 Total Bilirubin 0.6 mg/dl (0.2-1.3) 12/08/16 19:37 AST 72 U/L (14-36) H 12/08/16 19:37 ALT 35 U/L (9-52) 12/08/16 19:37 Alkaline Phosphatase 144 U/L (38-126) H 12/08/16 19:37 Total Creatine Kinase 105 U/L (30-135) 12/08/16 19:37 Troponin I < 0.0120 ng/mL (0.00-0.120) 12/08/16 19:37 Total Protein 8.6 G/DL (6.3-8.2) H 12/08/16 19:37 Albumin 4.0 g/dL (3.5-5.0) 12/08/16 19:37 Globulin 4.5 gm/dL (2.2-3.9) H 12/08/16 19:37 Albumin/Globulin Ratio 0.9 (1.0-2.1) L 12/08/16 19:37 Triglycerides 103 mg/DL (0-149) 12/09/16 05:30 Cholesterol 156 mg/dL (0-199) 12/09/16 05:30 LDL Cholesterol Direct 111 mg/dL (0-129) 12/09/16 05:30 HDL Cholesterol 28 MG/DL (30-70) L 12/09/16 05:30 Lipase 82 U/L (23-300) 12/08/16 19:37 TSH 3rd Generation 2.99 mIU/ML (0.46-4.68) 12/10/16 06:00 Urine Color Mariel (YELLOW) 12/08/16 21:44 Urine Clarity Cloudy (Clear) 12/08/16 21:44 Urine pH 6.0 (5.0-8.0) 12/08/16 21:44 Ur Specific [place] 1.025 (1.003-1.030) 12/08/16 21:44 Urine Protein 30 mg/dL (NEGATIVE) 12/08/16 21:44 Urine Glucose (UA) Neg mg/dL (Normal) 12/08/16 21:44 Urine Ketones Trace mg/dL (NEGATIVE) 12/08/16 21:44 Urine Blood Small (NEGATIVE) 12/08/16 21:44 Urine Nitrate Positive (NEGATIVE) H 12/08/16 21:44 Urine Bilirubin Negative (NEGATIVE) 12/08/16 21:44 Urine Urobilinogen 0.2-1.0 mg/dL (0.2-1.0) 12/08/16 21:44 Ur Leukocyte Esterase Large Nicky/uL (Negative) 12/08/16 21:44 Urine RBC (Auto) 12 /hpf (0-3) H 12/08/16 21:44 Urine Microscopic WBC 47 /hpf (0-5) H 12/08/16 21:44 Ur Squamous Epith Cells 2 /hpf (0-5) 12/08/16 21:44 Urine Bacteria Many (<OCC) H 12/08/16 21:44 Urine Opiates Screen Negative (NEGATIVE) 12/08/16 21:44 Urine Methadone Screen Negative (NEGATIVE) 12/08/16 21:44 Ur Barbiturates Screen Negative (NEGATIVE) 12/08/16 21:44 Ur Phencyclidine Scrn Negative (NEGATIVE) 12/08/16 21:44 Ur Amphetamines Screen Negative (NEGATIVE) 12/08/16 21:44 U Benzodiazepines Scrn Negative (NEGATIVE) 12/08/16 21:44 U Oth Cocaine Metabols Negative (NEGATIVE) 12/08/16 21:44 U Cannabinoids Screen Negative (NEGATIVE) 12/08/16 21:44 Attending/Attestation - Attestation I have personally seen and examined this patient.: Yes I have fully participated in the care of the patient.: Yes I have reviewed all pertinent clinical information, including history, physical exam and plan: Yes
[2016-12-12] MEDS: Enoxaparin 40 mg Syringe SC SCH (08:42)
--- NOTE | 2016-12-12 11:49 | RAD ---
PROCEDURE: CHEST RADIOGRAPH, 1 VIEW HISTORY: cp COMPARISON: None available. FINDINGS: LUNGS: No infiltrate. Linear scar/atelectasis at left base. PLEURA: No pneumothorax or pleural fluid seen. CARDIOVASCULAR: Normal. OSSEOUS STRUCTURES: No significant abnormalities. VISUALIZED UPPER ABDOMEN: Normal. OTHER FINDINGS: None. IMPRESSION: No active disease.
--- NOTE | 2016-12-12 11:58 | CARD ---
APPROVED REPORT EXAM: Two-dimensional and M-mode echocardiogram with Doppler and color Doppler. Other Information Quality : AverageRhythm : NSR INDICATION Syncope 2D DIMENSIONS IVSd0.90 (0.7-1.1cm)LVDd3.87 (3.9-5.9cm) LVOT Diameter2.47 (1.8-2.4cm)PWd0.54 (0.7-1.1cm) IVSs1.00 (0.8-1.2cm)LVDs2.63 (2.5-4.0cm) FS (%) 32.0 %PWs0.72 (0.8-1.2cm) M-Mode DIMENSIONS Left Atrium (MM)3.76 (2.5-4.0cm)Aortic Root2.79 (2.2-3.7cm) Aortic Cusp Exc.1.47 (1.5-2.0cm) Mitral Valve MV E Hqytoobh55.3cm/sMV DECEL [id number] A Fyenhidd151.0cm/s MV OQP02xmU/A ratio0.7MVA (PHT)3.66cm2 TDI Lateral E' Peak V5.70cm/sMedial E' Peak V6.27cm/sE/Lateral E'13.4 E/Medial E'12.2 LEFT VENTRICLE The left ventricle is normal size. There is normal left ventricular wall thickness. The left ventricular function is normal. The left ventricular ejection fraction is 60% There is normal LV segmental wall motion. The left ventricular diastolic function is normal. No left ventricle thrombus noted on this study. There is no ventricular septal defect visualized. There is no left ventricular aneurysm. There is no mass noted in the left ventricle. RIGHT VENTRICLE The right ventricle is normal size. There is normal right ventricular wall thickness. The right ventricular systolic function is normal. ATRIA The left atrium size is normal. The right atrium size is normal. The interatrial septum is intact with no evidence for an atrial septal defect. AORTIC VALVE The aortic valve is mildly to moderately sclerotic. No aortic regurgitation is present. There is no aortic valvular stenosis. There is no aortic valvular vegetation. MITRAL VALVE The mitral valve is normal in structure and function. There is no evidence of mitral valve prolapse. There is no mitral valve stenosis. There is no mitral valve regurgitation noted. TRICUSPID VALVE The tricuspid valve is normal in structure and function. There is no tricuspid valve regurgitation noted. There is no tricuspid valve prolapse or vegetation. There is no tricuspid valve stenosis. PULMONIC VALVE The pulmonary valve is normal in structure and function. There is no pulmonic valvular regurgitation. There is no pulmonic valvular stenosis. GREAT VESSELS The aortic root is normal in size. The ascending aorta is normal in size. The IVC is normal in size and collapses >50% with inspiration. PERICARDIAL EFFUSION The pericardium appears normal. There is no pleural effusion. <Conclusion> Normal LV Systolic Function Aortic Valve Sclerosis
== END 2016-12-12 11:59 | DRG 641 ==
LOC: H.ER 17:45 → H.ERHOLD 21:35 → H.TEL 23:32 → OBSVTOIN 12-09 15:10
PROVIDERS: ADMIT Internal Medicine; ATTEND Internal Medicine
DX: E86.0 Dehydration (principal); E86.1 Hypovolemia; F03.90 Unspecified dementia, unspecified severity, without behavioral disturbance, psychotic disturbance, mood disturbance, and anxiety; N39.0 Urinary tract infection, site not specified; S09.90XA Unspecified injury of head, initial encounter; W19.XXXA Unspecified fall, initial encounter; B96.20 Unspecified Escherichia coli [E. coli] as the cause of diseases classified elsewhere; Y93.9 Activity, unspecified; Y92.009 Unspecified place in unspecified non-institutional (private) residence as the place of occurrence of the external cause; R32 Unspecified urinary incontinence; R26.89 Other abnormalities of gait and mobility; R55 Syncope and collapse; M19.90 Unspecified osteoarthritis, unspecified site

== ENCOUNTER 2016-12-12 10:31 | Inpatient (IN) | payer OTHER, MEDICARE ==
[2016-12-13] MEDS ORDERED: cefTRIAXone IV 1 gm in Dextros 50 ML BAG IVPB SCH (09:00)
[2016-12-13] MEDS: Enoxaparin 40 mg Syringe SC SCH (18:01)
--- NOTE | 2016-12-13 20:05 | CP.PCM.HP ---
History of Present Illness - History of Present Illness History of Present Illness: 81 yo female with history of Dementia and Arthritis brought in after she was found on the floor at home. She was admitted and monitored in telemetry and was found to have UTI. She was empirically started on Rocephin which turned out to be the right antibiotic since urine culture turned out positive for E Coli sensitive to it. Patient was transferred to TCU for continuation of care and IV antibiotics. Present on Admission - Present on Admission Any Indicators Present on Admission: No History of DVT/PE: No History of Uncontrolled Diabetes: No Urinary Catheter: No Decubitus Ulcer Present: No Review of Systems - Review of Systems All systems: reviewed and no additional remarkable complaints except (aside from those mentioned above, 12 point system review were negative by me) Past Patient History - Tetanus Immunizations Tetanus Immunization: Unknown - Past Medical History & Family History Past Medical History?: Yes - Past Social History Smoking Status: Never Smoked Alcohol: None Home Situation {Lives}: With Family - CARDIAC Hx Cardiac Disorders: No - PULMONARY Hx Respiratory Disorders: No - NEUROLOGICAL Hx Neurological Disorder: Yes Hx Dementia: Yes (onset/undiagnosed) - HEENT Hx HEENT Problems: No - RENAL Hx Chronic Kidney Disease: No - ENDOCRINE/METABOLIC Hx Endocrine Disorders: No - HEMATOLOGICAL/ONCOLOGICAL Hx Blood Disorders: No Hx AIDS: No Hx Human Immunodeficiency Virus (HIV): No - INTEGUMENTARY Hx Dermatological Problems: No - MUSCULOSKELETAL/RHEUMATOLOGICAL Hx Musculoskeletal Disorders: Yes Hx Arthritis: Yes Hx Falls: Yes - GASTROINTESTINAL Hx Gastrointestinal Disorders: No - GENITOURINARY/GYNECOLOGICAL Hx Genitourinary Disorders: No - PSYCHIATRIC Hx Substance Use: No Other/Comment: Dementia - SURGICAL HISTORY Hx Surgeries: No - ANESTHESIA Hx Anesthesia: No Hx Anesthesia Reactions: No Hx Malignant Hyperthermia: No Meds Allergies/Adverse Reactions: Allergies Allergy/AdvReac Type Severity Reaction Status Date / Time No Known Allergies Allergy Verified 12/08/16 18:00 Physical Exam - Constitutional Appears: No Acute Distress - Head Exam Head Exam: ATRAUMATIC - Eye Exam Eye Exam: absent: Scleral icterus - ENT Exam ENT Exam: Mucous Membranes Moist - Neck Exam Neck exam: Negative for: Meningismus - Respiratory Exam Respiratory Exam: absent: Rhonchi, Wheezes, Respiratory Distress - Cardiovascular Exam Cardiovascular Exam: REGULAR RHYTHM, +S1, +S2 - GI/Abdominal Exam GI & Abdominal Exam: Soft. absent: Tenderness - Rectal Exam Rectal Exam: Deferred - Neurological Exam Neurological exam: Alert, Oriented x3 - Psychiatric Exam Psychiatric exam: Normal Affect - Skin Skin Exam: Dry, Intact Results - Vital Signs Recent Vital Signs: Last Vital Signs Temp 97.6 F 12/13/16 16:29 Pulse 90 12/13/16 16:29 Resp 20 12/13/16 16:29 BP 132/62 12/13/16 16:29 Pulse Ox 97 12/13/16 16:29 Assessment & Plan - Assessment and Plan (Free Text) Assessment: 81 yo female with history of Dementia and Arthritis brought in after she was found on the floor at home. She was admitted and monitored in telemetry and was found to have UTI. She was empirically started on Rocephin which turned out to be the right antibiotic since urine culture turned out positive for E Coli sensitive to it. Patient was transferred to TCU for continuation of care and IV antibiotics. (1) Syncope probably secondary to postural hypotension from dehydration and hypovolemia patient was monitored in telemetry and did not reveal any significant arrhythmia Head CT and MRI, carotid doppler did not show any pathology (2) UTI (urinary tract infection) urine culture was positive for E Coli sensitive to Rocephin (3) Dehydration resolved with IV hydration (4) Gait instability continue PT/OT
[2016-12-14] MEDS: Enoxaparin 40 mg Syringe SC SCH (10:02)
--- NOTE | 2016-12-14 14:08 | CP.PCM.PN ---
Subjective - Date & Time of Evaluation Date of Evaluation: 12/14/16 Time of Evaluation: 10:15 - Subjective Subjective: Patient seen and examined. Denied any complaint. Objective - Vital Signs/Intake and Output Vital Signs (last 24 hours): Temp Pulse Resp BP Pulse Ox 97.2 F L 62 20 113/55 L 97 12/14/16 08:33 12/14/16 08:33 12/14/16 08:33 12/14/16 08:33 12/14/16 08:33 - Medications Medications: Current Medications Acetaminophen (Tylenol 325mg Tab) 650 mg PO Q4 PRN PRN Reason: Other Last Admin: 12/13/16 20:35 Dose: 650 mg Aspirin (Ecotrin) 81 mg PO DAILY [facility] Last Admin: 12/14/16 10:02 Dose: 81 mg Enoxaparin Sodium (Lovenox) 40 mg SC DAILY [facility] PRN Reason: Protocol Last Admin: 12/14/16 10:02 Dose: 40 mg Ceftriaxone Sodium 1 gm/ (Sodium Chloride) 100 mls @ 100 mls/hr IVPB DAILY [facility] Last Admin: 12/14/16 10:03 Dose: 100 mls/hr - Constitutional Appears: No Acute Distress - Head Exam Head Exam: ATRAUMATIC - Eye Exam Eye Exam: absent: Scleral icterus - ENT Exam ENT Exam: Mucous Membranes Moist - Neck Exam Neck Exam: absent: Meningismus - Respiratory Exam Respiratory Exam: absent: Rhonchi, Wheezes, Respiratory Distress - Cardiovascular Exam Cardiovascular Exam: REGULAR RHYTHM, +S1, +S2 - GI/Abdominal Exam GI & Abdominal Exam: Soft. absent: Tenderness - Rectal Exam Rectal Exam: Deferred - Neurological Exam Neurological Exam: Alert - Psychiatric Exam Psychiatric exam: Normal Affect - Skin Skin Exam: Dry, Intact Assessment and Plan - Assessment and Plan (Free Text) Assessment: 81 yo female with history of Dementia and Arthritis brought in after she was found on the floor at home. She was admitted and monitored in telemetry and was found to have UTI. She was empirically started on Rocephin which turned out to be the right antibiotic since urine culture turned out positive for E Coli sensitive to Rocephin. Patient was transferred to TCU for continuation of care and IV antibiotics. (1) Syncope probably secondary to postural hypotension from dehydration and hypovolemia patient was monitored in telemetry and did not reveal any significant arrhythmia Head CT and MRI, carotid doppler did not show any pathology (2) UTI (urinary tract infection) urine culture was positive for E Coli sensitive to Rocephin need 2 more days of IV antibiotic (3) Dehydration resolved with IV hydration (4) Gait instability continue PT/OT
[2016-12-14 21:18] VITALS: RESP 20
[2016-12-15] MEDS: Enoxaparin 40 mg Syringe SC SCH (08:39)
[2016-12-15 10:58] LABS: RBC URINE 3 /hpf (0-3); URINE BACTERIA RARE (<OCC); URINE BILIRUBIN NEGATIVE (NEGATIVE); URINE BLOOD NEGATIVE (NEGATIVE); URINE COLOR YELLOW (YELLOW); URINE GLUCOSE (UA) NEG (Normal); URINE KETONE NEGATIVE (NEGATIVE); URINE LEUKOCYTE ESTERASE TRACE Leu/uL (Negative); URINE PROTEIN NEGATIVE (NEGATIVE); URINE UROBILINOGEN 0.2-1.0 mg/dL (0.2-1.0)
[2016-12-15 10:59] LABS: WBC URINE 15 /hpf (0-5)
[2016-12-16] MEDS: Enoxaparin 40 mg Syringe SC SCH (09:30)
[2016-12-18 05:54] LABS: HEMATOCRIT 34.8 % (34.0-47.0); MEAN CELL VOLUME 88.3 fl (81.0-99.0); MEAN CORPUSCULAR HEMOGLOBIN 29.2 pg (27.0-31.0); RED CELL DISTRIBUTION WIDTH 13.3 % (11.5-14.5); WHITE BLOOD COUNT 7.1 K/uL (4.8-10.8)
[2016-12-18 06:10] LABS: BLOOD UREA NITROGEN 13 mg/dl (7-17); CALCIUM 8.8 mg/dL (8.4-10.2); CARBON DIOXIDE 26 mmol/L (22-30); CHLORIDE 105 mmol/L (98-107); GFR AFRICAN-AMERICAN > 60; GLUCOSE,RANDOM 108 mg/dL (65-105); POTASSIUM 4.2 MMOL/L (3.6-5.0); SODIUM 140 mmol/l (132-148)
[2016-12-18] MEDS: Enoxaparin 40 mg Syringe SC SCH (08:17)
[2016-12-19] MEDS: Enoxaparin 40 mg Syringe SC SCH (08:16)
--- NOTE | 2016-12-19 17:57 | CP.PCM.PN ---
Subjective - Date & Time of Evaluation Date of Evaluation: 12/19/16 Time of Evaluation: 11:00 - Subjective Subjective: Pt seen and examined. Complained of on and off chest pain. Objective - Vital Signs/Intake and Output Vital Signs (last 24 hours): Temp Pulse Resp BP Pulse Ox 97.3 F L 64 20 119/56 L 97 12/19/16 08:06 12/19/16 08:06 12/19/16 08:06 12/19/16 08:06 12/19/16 08:06 - Medications Medications: Current Medications Acetaminophen (Tylenol 325mg Tab) 650 mg PO Q4 PRN PRN Reason: Other Last Admin: 12/13/16 20:35 Dose: 650 mg Aspirin (Ecotrin) 81 mg PO DAILY [facility] Last Admin: 12/19/16 08:16 Dose: 81 mg Enoxaparin Sodium (Lovenox) 40 mg SC DAILY [facility] PRN Reason: Protocol Last Admin: 12/19/16 08:16 Dose: 40 mg - Labs Labs: 12/18/16 05:20 12/18/16 05:20 - Constitutional Appears: No Acute Distress - Head Exam Head Exam: ATRAUMATIC - Eye Exam Eye Exam: absent: Scleral icterus - ENT Exam ENT Exam: Mucous Membranes Moist - Neck Exam Neck Exam: absent: Meningismus - Respiratory Exam Respiratory Exam: absent: Rhonchi, Wheezes, Respiratory Distress - Cardiovascular Exam Cardiovascular Exam: REGULAR RHYTHM, +S1, +S2 - GI/Abdominal Exam GI & Abdominal Exam: Soft. absent: Tenderness - Rectal Exam Rectal Exam: Deferred - Neurological Exam Neurological Exam: Alert - Psychiatric Exam Psychiatric exam: Normal Affect - Skin Skin Exam: Dry, Intact Assessment and Plan - Assessment and Plan (Free Text) Assessment: 81 yo female with history of Dementia and Arthritis brought in after she was found on the floor at home. She was admitted and monitored in telemetry and was found to have UTI. She was empirically started on Rocephin which turned out to be the right antibiotic since urine culture turned out positive for E Coli sensitive to Rocephin. Patient was transferred to TCU for continuation of care and IV antibiotics. (1) Syncope probably secondary to postural hypotension from dehydration and hypovolemia patient was monitored in telemetry and did not reveal any significant arrhythmia Head CT and MRI, carotid doppler did not show any pathology (2) UTI (urinary tract infection) completed an 11 day course of IV rocephin (3) Dehydration resolved with IV hydration (4) Gait instability continue PT/OT (5) Chest Pain, non cardiac EKG: no acute ischemic changes Troponin: not elevated
--- NOTE | 2016-12-20 07:42 | CARD ---
APPROVED REPORT EKG Measurement Heart [id number] <Conclusion> Poor data quality, interpretation may be adversely affected Normal sinus rhythm Normal ECG
[2016-12-20 08:10] VITALS: BP 120/55; PULSE 65; TEMP 97.6; O2SAT 99
[2016-12-20] MEDS: Enoxaparin 40 mg Syringe SC SCH (08:26)
--- NOTE | 2016-12-20 11:14 | CP.PCM.DIS ---
Provider - Provider Date of Admission: 12/12/16 12:07 Attending physician: Eufemia Samuel MD Time Spent in preparation of Discharge (in minutes): 25 Diagnosis - Discharge Diagnosis (1) Syncope Status: Resolved Comment: patient was monitored in telemetry and did not show any significant findings. no recurrence since admitted in telemetry and TCU (2) UTI (urinary tract infection) Status: Resolved Comment: completed 11 day course of IV Rocephin. asymptomatic (3) Gait instability Status: Chronic Comment: discharge to [facility] for continuation of therapy Hospital Course - Lab Results Lab Results: Micro Results 12/14/16 10:25 Urine,Clean Catch Urine Culture - Final Gram Positive Cocci Most Recent Lab Values WBC 7.1 K/uL (4.8-10.8) 12/18/16 05:20 RBC 3.94 Mil/uL (3.80-5.20) 12/18/16 05:20 Hgb 11.5 g/dL (12.0-16.0) L 12/18/16 05:20 Hct 34.8 % (34.0-47.0) 12/18/16 05:20 MCV 88.3 fl (81.0-99.0) 12/18/16 05:20 MCH 29.2 pg (27.0-31.0) 12/18/16 05:20 MCHC 33.0 g/dL (33.0-37.0) 12/18/16 05:20 RDW 13.3 % (11.5-14.5) 12/18/16 05:20 Plt Count 387 K/uL (130-400) 12/18/16 05:20 Sodium 140 mmol/l (132-148) 12/18/16 05:20 Potassium 4.2 MMOL/L (3.6-5.0) 12/18/16 05:20 Chloride 105 mmol/L (98-107) 12/18/16 05:20 Carbon Dioxide 26 mmol/L (22-30) 12/18/16 05:20 Anion Gap 13 (10-20) 12/18/16 05:20 BUN 13 mg/dl (7-17) 12/18/16 05:20 Creatinine 0.6 mg/dL (0.7-1.2) L 12/18/16 05:20 Est GFR ( Amer) > 60 12/18/16 05:20 Est GFR (Non-Af Amer) > 60 12/18/16 05:20 Random Glucose 108 mg/dL (65-105) H 12/18/16 05:20 Calcium 8.8 mg/dL (8.4-10.2) 12/18/16 05:20 Troponin I < 0.0120 ng/mL (0.00-0.120) 12/19/16 18:15 Urine Color Yellow (YELLOW) 12/15/16 10:46 Urine Clarity Slighty-cloudy (Clear) 12/15/16 10:46 Urine pH 7.0 (5.0-8.0) 12/15/16 10:46 Ur Specific [place] 1.012 (1.003-1.030) 12/15/16 10:46 Urine Protein Negative mg/dL (NEGATIVE) 12/15/16 10:46 Urine Glucose (UA) Neg mg/dL (Normal) 12/15/16 10:46 Urine Ketones Negative mg/dL (NEGATIVE) 12/15/16 10:46 Urine Blood Negative (NEGATIVE) 12/15/16 10:46 Urine Nitrate Negative (NEGATIVE) 12/15/16 10:46 Urine Bilirubin Negative (NEGATIVE) 12/15/16 10:46 Urine Urobilinogen 0.2-1.0 mg/dL (0.2-1.0) 12/15/16 10:46 Ur Leukocyte Esterase Trace Nicky/uL (Negative) 12/15/16 10:46 Urine RBC (Auto) 3 /hpf (0-3) 12/15/16 10:46 Urine Microscopic WBC 15 /hpf (0-5) H 12/15/16 10:46 Ur Squamous Epith Cells 2 /hpf (0-5) 12/15/16 10:46 Urine Bacteria Rare (<OCC) 12/15/16 10:46 - Hospital Course Hospital Course: 81 yo female with history of Dementia and Arthritis brought in after she was found on the floor at home. She was admitted and monitored in telemetry and was found to have UTI. She was empirically started on Rocephin which turned out to be the right antibiotic since urine culture turned out positive for E Coli sensitive to Rocephin. She was transferred to TCU for continuation of care and IV antibiotics. Patient did well and completed 11 day course of IV antibiotics. She is discharged to [facility] in stable condition. Discharge Exam - Head Exam Head Exam: ATRAUMATIC - Eye Exam Eye Exam: absent: Scleral icterus - ENT Exam ENT Exam: Mucous Membranes Moist - Respiratory Exam Respiratory Exam: absent: Wheezes, Respiratory Distress - Cardiovascular Exam Cardiovascular Exam: REGULAR RHYTHM, +S1, +S2 - GI/Abdominal Exam GI & Abdominal Exam: Soft. absent: Tenderness - Rectal Exam Rectal Exam: Deferred - Neurological Exam Neurological exam: Alert - Psychiatric Exam Psychiatric exam: Normal Affect - Skin Skin Exam: Dry, Intact Discharge Plan - Follow Up Plan Condition: GOOD Disposition: HOME/ ROUTINE Instructions: Syncope (DC), Fall Prevention (DC)
== END 2016-12-20 13:10 | DRG 690 ==
LOC: H.TCU 12:07
PROVIDERS: ADMIT Internal Medicine; ATTEND Internal Medicine
PROC: F08Z1FZ Dressing Techniques Treatment using Assistive, Adaptive, Supportive or Protective Equipment (ICD-10-PCS; principal; 2016-12-12)
PROC: F08Z4FZ Home Management Treatment using Assistive, Adaptive, Supportive or Protective Equipment (ICD-10-PCS; 2016-12-12)
PROC: F07Z5FZ Bed Mobility Treatment using Assistive, Adaptive, Supportive or Protective Equipment (ICD-10-PCS; 2016-12-12)
PROC: F08Z0FZ Bathing/Showering Techniques Treatment using Assistive, Adaptive, Supportive or Protective Equipment (ICD-10-PCS; 2016-12-12)
PROC: F07Z9FZ Gait Training/Functional Ambulation Treatment using Assistive, Adaptive, Supportive or Protective Equipment (ICD-10-PCS; 2016-12-12)
PROC: F07L6ZZ Therapeutic Exercise Treatment of Musculoskeletal System - Lower Back / Lower Extremity (ICD-10-PCS; 2016-12-12)
DX: N39.0 Urinary tract infection, site not specified (principal); E86.0 Dehydration; F03.90 Unspecified dementia, unspecified severity, without behavioral disturbance, psychotic disturbance, mood disturbance, and anxiety; R55 Syncope and collapse; B96.20 Unspecified Escherichia coli [E. coli] as the cause of diseases classified elsewhere; R26.2 Difficulty in walking, not elsewhere classified; M19.90 Unspecified osteoarthritis, unspecified site; I95.1 Orthostatic hypotension; E86.1 Hypovolemia; R07.89 Other chest pain